=== PATIENT | male | born 1955 | race Caucasian/White ===

== ENCOUNTER 2018-08-02 22:08 | Inpatient (IN) | payer MEDICARE, OTHER ==
[~2018-08-02] VITALS: Ht 182.9 cm; Wt 78.1 kg
[~2018-08-02 22:08] MED LIST: CRUTCH3 USE; HYDACE5 PO; Lopressor 25 mg25 MG PO
[2018-08-02 22:59] LABS: BASOPHILS ABSOLUTE AUTO 0.06 K/mm3 (0.00-0.23); BASOPHILS PERCENT AUTO 1 % (0-2); EOSINOPHILS ABSOLUTE AUTO 0.11 K/mm3 (0.00-0.68); EOSINOPHILS PERCENT AUTO 1 % (0-6); Hematocrit 50.3 % (37.0-53.0); Hemoglobin 16.2 g/dL (13.5-17.5); IMMATURE GRAN ABSOLUTE AUTO 0.02 K/mm3 (0.00-0.10); IMMATURE GRAN PERCENT AUTO 0 % (0-1); LYMPHOCYTES ABSOLUTE AUTO 3.35 K/mm3 (0.84-5.20); LYMPHOCYTES PERCENT AUTO 38 % (21-46); MONOCYTES ABSOLUTE AUTO 0.78 K/mm3 (0.16-1.47); MONOCYTES PERCENT AUTO 9 % (4-13); Mean Corpuscular HGB 29.4 pg (26.0-34.0); Mean Corpuscular HGB Conc 32.2 g/dL (31.5-36.5); Mean Corpuscular Volume 91 fL (80-100); Mean Platelet Volume 11.8 fL (9.1-12.4); NEUTROPHILS ABSOLUTE AUTO 4.47 K/mm3 (1.96-9.15); NEUTROPHILS PERCENT AUTO 51 % (41-73); Platelet Count 211 K/mm3 (150-400); RDW Coefficient Variation 14.3 % (11.7-14.2); RDW Standard Deviation 48.3 fL (35.1-46.3); Red Blood Cell Count 5.51 M/mm3 (4.30-5.90); White Blood Cell Count 8.79 K/mm3 (4.00-11.30)
[2018-08-02 23:18] LABS: Alanine Aminotransfer (ALT/SGP 47 U/L (12-78); Albumin, Blood 4.3 g/dL (3.4-5.0); Albumin/Globulin Ratio 1.1 (0.8-1.8); Alk Phos 137 U/L (50-136); Anion Gap 11 mmol/L (6-16); Aspartate Aminotrans (AST/SGOT 42 U/L (12-37); Bilirubin, Total 1.6 mg/dL (0.1-1.0); Blood Urea Nitrogen 44 mg/dL (8-24); Bun/Creatinine Ratio 40.7 (12.0-20.0); CO2, Blood 24 mmol/L (21-32); Calcium, Blood 9.4 mg/dL (8.5-10.1); Chloride, Blood 104 mmol/L (98-108); Creatinine, Blood 1.08 mg/dL (0.60-1.20); Glomerular Filtration Rate >60 (60-); Glucose, Blood 108 mg/dL (70-99); Sodium, Blood 139 mmol/L (136-145); Total Protein, Blood 8.3 g/dL (6.4-8.2); Troponin I 0.042 ng/mL (0.000-0.040)
--- NOTE | 2018-08-03 03:51 | NUR ---
ASSUMED CARE- PT ARRIVES TO [facility] FROM ER VIA GURNEY. PT AMBULATES INDEPENDENTLY TO THE HOSPITAL BED. REPORTS DYSPNEA ON EXERTION. HEART RHYTHM CURRENTLY IN ATRIAL FIBRILLATION WITH A RATE IN THE 140-160'S- PROVIDER TO BE CONTACTED. O2 SATS CURRENTLY 99% ON RA, BUT PT IS TACHYPNEIC. LUNG SOUNDS CLEAR IN UPPER LOBES, DIMINISHED IN THE BASES. 2+ EDEMA NOTED TO BLE'S. PT IS VERY ANXIOUS AND IS OCCASIONALLY AGITATED AT CURRENT CONDITION. ORIENTED TO ROOM AND EDUCATED POULTICE MACHINE OPERATOR LIGHT SYSTEM. PT EDUCATED ON RELAXATION TECHNIQUES AND PURSED LIP BREATHING, PREFERS HIS METHOD OF MOVEMENT AND PACING IN ROOM TO FACILITATE BETTER BREATHING. REPORTS SLIGHT PAIN TO CHEST WHEN "BREATHING EPISODES START" EDUCATION PROVIDED ON ORDERED CURRENT CONDITION AND WHY PT IS FEELING SHORT OF BREATH AND MEDICATIONS THAT WILL BE PROVIDED TO FACILITATE BETTER BREATHING AND DECREASED HEART RATE. WILL PROCEDE WITH ADMISSION AND ASSESSMENT. BED IN LOW POSITION, CALL LIGHT IN REACH.
--- NOTE | 2018-08-03 04:15 | NUR ---
PROVIDER CONTACTED- PT HEART RATE TRENDING IN THE 140-150'S. DR WILEY CONTACTED AND ORDERS RECEIVED FOR LOPRESSOR 5 MG IV PUSH NOW WELL LOPRESSOR 5 MG IV PUSH Q6 PRN FOR SUSTAINED HR >130. ORDERS ALSO RECEIVED TO GIVE 0900 PO METOPROLOL NOW. WILL INPUT ORDERS AND ADMINISTER.
[2018-08-03 04:51] LABS: Alanine Aminotransfer (ALT/SGP 48 U/L (12-78); Albumin, Blood 3.8 g/dL (3.4-5.0); Alk Phos 123 U/L (50-136); Anion Gap 8 mmol/L (6-16); Aspartate Aminotrans (AST/SGOT 43 U/L (12-37); Bilirubin, Total 1.6 mg/dL (0.1-1.0); Blood Urea Nitrogen 39 mg/dL (8-24); Bun/Creatinine Ratio 47.6 (12.0-20.0); CO2, Blood 22 mmol/L (21-32); Calcium, Blood 8.7 mg/dL (8.5-10.1); Chloride, Blood 107 mmol/L (98-108); Creatinine, Blood 0.82 mg/dL (0.60-1.20); Globulin, Blood 3.8 g/dL (2.2-4.0); Glomerular Filtration Rate >60 (60-); Glucose, Blood 118 mg/dL (70-99); Magnesium, Blood 1.9 mg/dL (1.6-2.4); Potassium, Blood 4.2 mmol/L (3.5-5.5); Sodium, Blood 137 mmol/L (136-145); Total Protein, Blood 7.6 g/dL (6.4-8.2)
--- NOTE | 2018-08-03 06:50 | NUR ---
SHIFT SUMMARY- PT HAS REMAINED AOX4. COOPERATIVE WITH CARE, BUT REMAINS VERY ANXIOUS THROUGHOUT REMAINDER OF NIGHT. PT CONTINUES TO STAND AND PACE WITH DYSPNEIC EPISODES. HEART RATE HAS BEGAN TO TREND DOWNWARD AND IS CURRENTLY AVERAGING IN THE 110'S. NO OTHER CHANGES FROM INITIAL ASSESSMENT. WILL CONTINUE TO MONITOR AND REPORT TO ONCOMING SHIFT RN. BED IN LOW POSITION, CALL LIGHT IN REACH.
[2018-08-03 12:55] LABS: International Normalized Ratio 1.47
[2018-08-03 16:15] LABS: Anion Gap 10 mmol/L (6-16); Blood Urea Nitrogen 47 mg/dL (8-24); Bun/Creatinine Ratio 42.3 (12.0-20.0); CO2, Blood 20 mmol/L (21-32); Chloride, Blood 105 mmol/L (98-108); Creatinine, Blood 1.11 mg/dL (0.60-1.20); Glomerular Filtration Rate >60 (60-); Glucose, Blood 134 mg/dL (70-99); Magnesium, Blood 2.1 mg/dL (1.6-2.4); Potassium, Blood 4.4 mmol/L (3.5-5.5); Sodium, Blood 135 mmol/L (136-145)
--- NOTE | 2018-08-03 16:59 | NUR ---
1530 PT MOANING AND YELLING OUT. C/O CP AND PALPITATIONS, PT IS MISERABLE. VSS. PER TELE MONITOR, PT HAS HAD A COUPLE OF EPISODES OF BRADYCARDIA, RATE DOWN TO THE 40s MOMENTARILY. PT STATES HE FEELS THE PALPITATIONS WHEN THAT HAPPENS AND STATES "I FEEL LIKE I'M GONNNA WHEN THAT HAPPENS". PT IS TEARFUL AND ANXIOUS. DR. MORRIS NOTIFIED, ORDERS RECEIVED. DR. HERNANDEZ UPDATED ALSO, NO ADDITIONAL ORDERS. PT PROVIDED WITH TYLENOL AND XANAX PO. EVENING FUROSEMIDE GIVEN. 1645 PT RESTING IN CHAIR, DENIES PAIN. FAMILY AT BEDSIDE.
--- NOTE | 2018-08-03 18:35 | NUR ---
SHIFT SUMMARY PT RESTING AT SIDE OF BED THROUGHOUT THE DAY. UP TO CHAIR THIS AFTERNOON. VSS EXCEPT FOR AFIB RATE 110s-130s THROUGHOUT THE DAY. PT DENIES PAIN EXCEPT FOR MULTIPLE EPISODES OF BRADYCARDIA WITH CHEST PAIN / PALPITATIONS WHICH MAKES THE PT YELL OUT AND MOAN. HOSPITALIST AND WIRELESS ENGINEER NOTIFIED OF PAIN AND BRADYCARDIA. LUNG SOUNDS CLEAR. 1+ PITTING EDEMA TO BLE. FAMILY AT BEDSIDE THIS EVENING. WILL CONTINUE TO MONITOR.
--- NOTE | 2018-08-04 01:16 | NUR ---
SINUS SANJEEV 1 MIN PATIENT HAD A VERY SYMPTOMATIC EPISODE DURING WHICH HE CONVERTED FROM AFIB DOWN TO SINUS SANJEEV FOR APPROX 1 MIN IN THE 38-42, PATIENT VERY SOB AND REPORTED CHEST PAIN. VS OBTAINED. PATIENT CONVERTED BACK TO AFIB IN THE 115'S.
[2018-08-04 04:10] LABS: BASOPHILS ABSOLUTE AUTO 0.03 K/mm3 (0.00-0.23); BASOPHILS PERCENT AUTO 0 % (0-2); EOSINOPHILS PERCENT AUTO 0 % (0-6); Hematocrit 43.3 % (37.0-53.0); Hemoglobin 14.2 g/dL (13.5-17.5); IMMATURE GRAN ABSOLUTE AUTO 0.03 K/mm3 (0.00-0.10); IMMATURE GRAN PERCENT AUTO 0 % (0-1); LYMPHOCYTES ABSOLUTE AUTO 1.87 K/mm3 (0.84-5.20); LYMPHOCYTES PERCENT AUTO 21 % (21-46); MONOCYTES ABSOLUTE AUTO 0.78 K/mm3 (0.16-1.47); MONOCYTES PERCENT AUTO 9 % (4-13); Mean Corpuscular HGB 29.4 pg (26.0-34.0); Mean Corpuscular HGB Conc 32.8 g/dL (31.5-36.5); Mean Corpuscular Volume 90 fL (80-100); Mean Platelet Volume 11.9 fL (9.1-12.4); NEUTROPHILS ABSOLUTE AUTO 6.31 K/mm3 (1.96-9.15); NEUTROPHILS PERCENT AUTO 70 % (41-73); Platelet Count 187 K/mm3 (150-400); RDW Coefficient Variation 14.1 % (11.7-14.2); RDW Standard Deviation 46.4 fL (35.1-46.3); Red Blood Cell Count 4.83 M/mm3 (4.30-5.90); White Blood Cell Count 9.02 K/mm3 (4.00-11.30)
[2018-08-04 04:24] LABS: Albumin, Blood 3.2 g/dL (3.4-5.0); Anion Gap 10 mmol/L (6-16); Blood Urea Nitrogen 52 mg/dL (8-24); Bun/Creatinine Ratio 45.6 (12.0-20.0); CO2, Blood 21 mmol/L (21-32); Calcium, Blood 8.3 mg/dL (8.5-10.1); Chloride, Blood 105 mmol/L (98-108); Creatinine, Blood 1.14 mg/dL (0.60-1.20); Glomerular Filtration Rate >60 (60-); Glucose, Blood 114 mg/dL (70-99); Phosphorus, Blood 4.7 mg/dL (2.5-4.9); Potassium, Blood 3.9 mmol/L (3.5-5.5); Sodium, Blood 136 mmol/L (136-145)
--- NOTE | 2018-08-04 06:46 | NUR ---
SHIFT SUMMARY- PT HAS RMEAINED AOX4 THROUGHOUT SHIFT. PLEASANT AND COOPERATIVE WITH CARE. PT CONTINUES TO HAVE SYMPTOMATIC EPISODES OF SINUS BRADYCARDIA. PT REPORTS FEELING VERY SHORT OF BREATH WITH PAIN IN CHEST THAT DISIPATES WHEN HEART RATE CONVERTS BACK TO AFIB WITH RVR. REPORTS THAT RELAXATION BREATHING TECHNIQUES HELP. PT MEDICATED FOR PAIN AND ANXIETY THAT DECREASED WITH ORDERED MEDICATIONS. PT STILL UNABLE TO TOLERATE LYING FLAT AT THIS TIME- REPORTS THAT SITTING UP IN CHAIR IS HELPFUL FOR RESTING AND EASE OF BREATHING. PT WAS ABLE TO SLEEP FOR APPROXIMATELY 4-5 HOURS ON AND OFF THROUGHOUT THE NIGHT. STATES THAT HE IS FEELING MORE RESTED THIS AM. NO OTHER CHANGES NOTED FROM INITIAL ASSESSMENT. WILL CONTINUE TO MONITOR AND REPORT TO ONCOMING SHIFT RN. BED IN LOW POSITION, CALL LIGHT IN REACH.
--- NOTE | 2018-08-04 07:05 | NUR ---
INITIAL ASSESSMENT: Pt up in chair. Went into room because Pt was starting to deysi down on the tele monitor to 40-50's, still afib. He was only deysi for about 30sec then came back up to 130's afib. During the episode Pt was symptomatic. He was Diapheretic with SOB and chest pain. Once HR back in afib RVR his symptoms subsided. LS clear. HR irregular with very prominant murmur. Pulses faint but palp. VS with elevated BP. Biox 98% on RA. Resp even and unlabored. Trace edema in BLE. Pt has call light in reach. Denies needs when his heart rate is back to 130-140's. Will monitor.
--- NOTE | 2018-08-04 14:00 | NUR ---
UPDATE: Pt up in chair. States that he is feeling good and would like to try to lay down in bed. Pt states that when he lays down is when he starts to have his "episodes" of SOB, CP and diapheresis that is associated with bradycardia. Pt into bed and at a 20 degree angle. tolerating well and dozing off. will monitor.
--- NOTE | 2018-08-04 18:47 | NUR ---
Shift Summary: Pt sitting up in the recliner chair at this time with sister at side. Pt had 4 more episodes of symptomatic bradycardia after 1400, the most significant were at dinner time and right after when pt got up to bathroom. HR during these two episodes dropped down into the 30's. Pt becomes diapheretic, SOB and has CP during these episodes. He states that the chest pain during these episodes is improving however, and rates it between a 3-6/10. Pt anxious at times but has refused anxiety medications so far. Pt has agreed to an Angiogram, MCKINLEY and cardioversion tomorrow and is NPO after Midnight. Pt denies questions about these procedures at this time. Will report to night RN and transfer care.
--- NOTE | 2018-08-05 06:00 | NUR ---
SHIFT SUMMARY PATIENT PLEASENT AND INTERACTIVE WITH STAFF. PATIENT UP IN THE CHAIR ALL NIGHT SINCE PATIENT REPORTS IT HELPS HIS CHEST PAIN. HE STATES HE CANNOT LIE DOWN IN BED WITHOUT GETTING CP AND ANXIETY. PATIENT AWAKE MOST OF THE NIGHT AND STATES HE HAS NOT SLEPT MUCH FOR THE PAST SEVERAL NIGHTS. PATIENT DID APPEAR TO NAP OCCATIONALLY THROUGHOUT THE SHIFT BUT IT WAS NEVER FOR VERY LONG. PATIENT'S 2100 VITALS WERE TAKEN LAST NIGHT, HOWEVER THEY DID NOT GO THROUGH THE CAPSULE AND WERE NOT STORED IN THE CAPSULE. RN WAS IN THE ROOM AND ASSESSED THE VITAL SIGNS AT THE TIME THEY WERE TAKEN, NO ACTION REQUIRED IN REGARDS TO PATIENT'S 2100 VITALS. PATIENT HAD APPROX 4 EPISODES OF CHEST PAIN THAT APPEARED TO BE CORRELATED WITH WHEN THE PATIENT BECAME BRADYCARDIC ON THE TELE MONITOR. PATIENT REPORTED 7/10 FOR ONE OF THE EPSIDES AND THEN STATED, "I'M TIRED OF RATING THEM" AND DID NOT RATE ANY MORE THROUGHOUT THE NIGHT. THE LAST EPISODE OF CHEST PAIN AND BRADYCARDIA OCCERED AT APPROX 0330 AND PATIENT REMAINED BRADICARDIC FOR APPROX 35 SECONDS PER THE TELE MONITOR. WILL CONTINUE TO MONITOR PATIENT AND REPORT TO ONCOMING RN.
--- NOTE | 2018-08-05 09:03 | NUR ---
ASSUMED CARE PT ALERT AND ORIENTED SITTING UP IN CHAIR. VS STABLE. DR. CHAU IN TO SEE PT AND INFORM HIM OF PROCEDURE TODAY. PT ANXIOUS ABOUT PROCEDURE AND EPISODES OF SYMPTOMATIC BRADYCARDIA. HR IN THE 90'S AFIB PER MONITOR. PT NPO. WILL CONTINUE TO MONITOR.
--- NOTE | 2018-08-05 09:29 | NUR ---
PT TAKEN TO [facility] FOR PROCEDURE BY BED. WILL AWAIT RETURN.
--- NOTE | 2018-08-05 12:00 | NUR ---
PT RETURNED FROM PROCEDURE. BP LOW SEE VS. PT ALERT AND ORIENTED. DR. HERNANDEZ CALLED ABOUT BP. DR. HERNANDEZ UP TO SEE PT. HE STATES NO NEW ORDERS IF MAP STAYS ABOVE 60. WILL CONTINUE TO MONITOR. TR BAND IN PLACE AND NO SIGNS OR SYMPTOMS OF BLEEDING, HEMATOMA, OR N/T.
--- NOTE | 2018-08-05 18:18 | NUR ---
SHIFT SUMMARY PT ALERT AND ORIENTED. VS HAVE IMPROVED. SPOKE WITH DR. HERNANDEZ AND PLAN TO TRY CATHETERIZATION AGAIN IN THE AM. ORDERS TO GIVE MORNING DOSE OF LASIX EARLY BEFORE PROCEDURE. PT PLACED ON 2L 02 VIA NC FOR COMFORT. PT STATES HE FEELS SHORT OF BREATH, BUT O2 SATS HAVE REMAINED ABOVE 92%. TR BAND DEFLATED AND SITE FREE FROM BLEEDING. SLIGHT BRUISING PROXIMAL TO ACCESS SITE. NO SIGNS OF HEMATOMA. PT EDUCATED ABOUT MOVEMENT RESTRICTIONS. PT TO BE NPO AT MIDNIGHT. HEPARIN GTT INFUSING PER ORDERS. HR AFIB WITH AN AVERAGE RATE 110'S. WILL CONTINUE TO MONITOR AND REPORT TO ONCOMING RN. CALL LIGHT IN REACH.
[2018-08-06 04:22] LABS: Bun/Creatinine Ratio 40.5 (12.0-20.0); Calcium, Blood 8.5 mg/dL (8.5-10.1); Creatinine, Blood 1.31 mg/dL (0.60-1.20); Potassium, Blood 3.5 mmol/L (3.5-5.5)
[2018-08-06 06:27] LABS: International Normalized Ratio 1.3; Prothrombin Time Results 13.5 Sec (9.7-11.5)
--- NOTE | 2018-08-06 07:24 | NUR ---
ASSUMED CARE PT TAKEN TO EYE DROPPER ASSEMBLER PRIOR TO ASSESSMENT. WILL AWAIT RETURN.
--- NOTE | 2018-08-06 07:32 | NUR ---
SHIFT SUMMARY PATIENT PLEASENT THROUGHOUT MOST OF THE NIGHT. HOWEVER, AT APPROX 0300 THIS AM PATIENT BEGAN TO BECOME ANXIOUS ABOUT PROCEDURE AND ABOUT LAYING FLAT. PATIENT DID NOT WANT ANY MEDICATION FOR ANXIETY. PATIENT SPENT MOST OF THE NIGHT SITTING UP IN THE RECLINER CHAIR SINCE PATIENT REPORTS PAIN AND SOB OFTEN OCCURS WHEN HE IS LAYING DOWN. PATIENT WAS ABLE TO LAY IN THE BED ON HIS SIDE FOR A SHORT PERIOD OF TIME THIS MORNING. PATIENT ONLY HAD ONE EPISODE OF BRADYCARDIA PER TELE MONITOR. PATIENT DID HAVE CHEST PAIN, SOB, AND BECAME ANXIOUS DURING THIS EPISODE. HEPARIN GTT RAN PER ORDERS. VITAL SIGNS CHARTED. AT APPROX 0645 AN RN FROM TESTING SPECIALIST CAME AND TOOK PATIENT TO THE TESTING SPECIALIST. PATIENT CURRENTLY IN PROCEDURE. REPORT GIVEN TO ONCOMING RN.
[2018-08-06 07:38] LABS: Mean Platelet Volume 12.9 fL (9.1-12.4); Platelet Count 186 K/mm3 (150-400)
--- NOTE | 2018-08-06 19:39 | NUR ---
SHIFT SUMARY PT ALERT AND ORIENTED. VS STABLE. PT REPORTS FEELING "MUCH BETTER" SINCE CARDIAC CATH. HEPARIN GTT INFUSING PER ORDERS. ACCESS SITE TO RIGHT WRIST FREE FROM SIGNS OF BLEEDING OR HEMATOMA, MINIMAL BRUISING PROXIMAL TO ACCESS SITE. RIGHT UPPER ARM ACCESS SITE COVERED WITH GUAZE AND TEGADERM DRESSING. PT ABLE TO AMBULATE WITH SBA. HR HAS BEEN AFIB WITH A RATE FROM 90-110'S. REPORT GIVEN TO JEANMARIE HA.
[2018-08-07 04:30] LABS: International Normalized Ratio 1.67; Prothrombin Time Results 16.9 Sec (9.7-11.5)
[2018-08-07 04:31] LABS: Anion Gap 7 mmol/L (6-16); Blood Urea Nitrogen 45 mg/dL (8-24); Bun/Creatinine Ratio 41.7 (12.0-20.0); CO2, Blood 27 mmol/L (21-32); Calcium, Blood 8.7 mg/dL (8.5-10.1); Chloride, Blood 101 mmol/L (98-108); Creatinine, Blood 1.08 mg/dL (0.60-1.20); Glomerular Filtration Rate >60 (60-); Glucose, Blood 106 mg/dL (70-99); Potassium, Blood 3.6 mmol/L (3.5-5.5); Sodium, Blood 135 mmol/L (136-145)
--- NOTE | 2018-08-07 06:48 | NUR ---
SHIFT SUMMARY PT ALERT, ORIENTED AND INDEPENDENT T/O THE SHIFT. HE WAS PLEASANT AND COOPERATIVE WITH VITALS AND ASSESSMENTS. PT HAD NO ACUTE CHANGES TO LOC OR MENTATION. PT WAS ABLE TO AMBULATE TO BATHROOM WITHOUT ASSISTANCE. HE HAS HEPARIN DRIP RUNNING BUT HANDLES HIS PUMP WELL WITHOUT ASSSISTANCE. PT DID HAVE SOME COMPLAINTS OF ABDOMINAL DISCOMFORT DURING THE NIGHT, BUT PT STATED SPRITE HELPED WITH THIS DISCOMFORT. PT DENIED ANY UNMET NEEDS AND WAS ABLE TO EFFECTIVELY MAKE NEEDS KNOWN. HE HAS HIS BED IN THE LOWEST POSITION, 2X SIDE RAILS IN PLACE AND NON SLIP SOCKS ON FOR SAFETY. HE WILL CONTINUE TO BE MONITORED UNTIL HANDOFF TO DAYSHIFT RN.
--- NOTE | 2018-08-07 18:36 | NUR ---
SHIFT SUMMARY PT RESTING IN BED AND RECLINER THROUGHOUT THE DAY. VSS. AFIB RATE 80s-110s, PT AMBULATED IN HALLWAY AND TOLERATED WELL. RIGHT WRIST SOFT, NO BLEED OR HEMATOMA, OPSITE DRSG CDI. RIGHT AC SITE SOFT, NO BLEED OR HEMATOMA, OPSITE AND GAUZE CDI. 1+ PITTING EDEMA TO BLE. HEPARIN GTT CONTINUED AT THE SAME RATE FOR THIS SHIFT PER PHARMACY ORDERS. PT STATES HE HAS BEEN FEELING COOPED UP, SO THIS RN AND PT TOOK A LAP AROUND THE PCU. PT STATES HE FEELS BETTER AFTER HIS WALK. PT AMBULATING INDEPENDENTLY IN ROOM. WILL CONTINUE TO MONITOR.
[2018-08-08 04:14] LABS: International Normalized Ratio 2.39; Prothrombin Time Results 23.4 Sec (9.7-11.5)
[2018-08-08 04:16] LABS: Anion Gap 7 mmol/L (6-16); Blood Urea Nitrogen 33 mg/dL (8-24); Bun/Creatinine Ratio 29.7 (12.0-20.0); CO2, Blood 28 mmol/L (21-32); Chloride, Blood 103 mmol/L (98-108); Creatinine, Blood 1.11 mg/dL (0.60-1.20); Glomerular Filtration Rate >60 (60-); Glucose, Blood 100 mg/dL (70-99); Potassium, Blood 3.3 mmol/L (3.5-5.5); Sodium, Blood 138 mmol/L (136-145)
--- NOTE | 2018-08-08 06:07 | NUR ---
SHIFT SUMMARY PT ALERT AND ORIENTED X 3 THROUGHOUT SHIFT. HE WAS PLEASANT AND COOPERATIVE WITH VITALS AND ASSESSMENTS. HE WAS INDEPENDENT IN THE ROOM, DENIED ANY COMPLAINTS OF PAIN OR DISCOMFORT AND WAS ABLE TO EFFECTIVELY COMMUNICATE WITH STAFF. PT HAD NO ACUTE CHANGES TO VITALS OR LOC. PT DENIED ANY UNMET NEEDS. HE WILL CONTINUE TO BE MONITORED UNTIL HANDOFF TO DAYSHIFT RN.
[2018-08-08] MEDS ORDERED: ALPR.25 PO (13:50)
[2018-08-08] MEDS ORDERED: ASPI81CH PO (13:52)
[2018-08-08] MEDS ORDERED: Lisinopril2.5 MG PO (13:53)
[2018-08-08] MEDS ORDERED: Lopressor 25 mg25 MG PO (13:53)
[2018-08-08] MEDS ORDERED: TORSE20 PO (13:54)
[2018-08-08] MEDS ORDERED: WARF5 PO (13:55)
[2018-08-08] MEDS ORDERED: POTA10T PO (13:55)
--- NOTE | 2018-08-08 14:26 | NUR ---
DISCHARGE NOTE PT STABLE FOR DISCHARGE. IV REMOVED. DISCHARGE INSTRUCTIONS AND DISCHARGE MEDICATIONS REVIEWED WITH PT AND FAMILY. PT AND FAMILY VERBALIZE UNDERSTANDING AND DENY QUESTIONS. PT DISCHARGED VIA WHEELCHAIR TO WAITING CAR.
== END 2018-08-08 14:35 | disposition home or self-care (01) | DRG 286 ==
LOC: ER 22:08 → PCU 22:09
PROVIDERS: Emergency Medicine; Family Medicine; Internal Medicine; Internal Medicine Cardiovascular Disease; Pharmacist; ADMIT Hospitalist
PROC: 03JY3ZZ Inspection of Upper Artery, Percutaneous Approach (ICD-10-PCS; 2018-08-05)
PROC: 5A2204Z Restoration of Cardiac Rhythm, Single (ICD-10-PCS; principal; 2018-08-06)
PROC: B245ZZ4 Ultrasonography of Left Heart, Transesophageal (ICD-10-PCS; 2018-08-06)
PROC: B211YZZ Fluoroscopy of Multiple Coronary Arteries using Other Contrast (ICD-10-PCS; 2018-08-06)
DX: I11.0 Hypertensive heart disease with heart failure (principal); I50.21 Acute systolic (congestive) heart failure; J96.01 Acute respiratory failure with hypoxia; E87.1 Hypo-osmolality and hyponatremia; I24.8 Other forms of acute ischemic heart disease; I24.0 Acute coronary thrombosis not resulting in myocardial infarction; N17.9 Acute kidney failure, unspecified; I48.0 Paroxysmal atrial fibrillation; I42.8 Other cardiomyopathies; F41.9 Anxiety disorder, unspecified; F12.90 Cannabis use, unspecified, uncomplicated; Z87.891 Personal history of nicotine dependence
CPT/HCPCS: 36415; 71045; 71046; 71260; 80048; 80053; 80069; 83735; 83880; 84439; 84443; 84481; 84484; 85025; 85049; 85610; 85730; 92960; 93005; 93010; 93306; 93312; 93325; 93456; 93458; 96361-59; 96365; 96374-59; 99152; 99153; 99285-25; C1769; C1894; J0282; J1265; J1644; J1650; J1940; J2250; J3010; J7030; J7120; Q9967

== ENCOUNTER → 2021-10-13 | Outpatient (CLI) | payer MEDICARE, OTHER ==
[~2021-10-13] MED LIST changes: +ALPR.25 PO; +ATOR40TA PO; +Aspir 8181 MG PO; +Coumadin2 MG PO; +K-Phos Origina500 MG PO; +LEVO750 PO; +Lisinopril2.5 MG PO; +METO50 PO; +POTA10T PO; +PROBIOTIC1 EAC7 PO; +TAMSULOSIN HCL0.4 M1 PO; +TORSE20 PO; +WARF3 PO
[2021-10-14 13:57] LABS: Stool Occult Bld Immuno 1 Positive (NEGATIVE)
== END | disposition home or self-care (01) ==
LOC: LAB SHORT 09:00
PROVIDERS: Student in an Organized Health Care Education/Training Program
DX: Z12.11 Encounter for screening for malignant neoplasm of colon (principal)
CPT/HCPCS: G0328